=== PATIENT | female | born 1950 | race Caucasian/White ===

== ENCOUNTER 2020-08-10 17:27 | Emergency (ER) | payer OTHER ==
[~2020-08-10] VITALS: Ht 160 cm; Wt 72.6 kg
[2020-08-10 18:56] LABS: Basophils # (auto) 0 10 ^3/uL (0-0.2); Eosinophils # (auto) 0 10 ^3/uL (0-0.8); Lymphocytes # (auto) 0.8 10 ^3/uL (0.4-5.4); Lymphocytes % (auto) 14.7 % (10.0-50.0); Monocytes # (auto) 0.8 10 ^3/uL (0-1.3); Nucleated Red Blood Cells % 0.1 %
[2020-08-10 18:59] LABS: Basophils % (auto) 0.3 % (0.0-2.0); Hematocrit 33.9 % (36.0-46.0); Hemoglobin 10.5 g/dL (12.2-16.2); Mean Corpuscular Volume 77.4 fL (80.0-100.0); Monocytes % (auto) 14.8 % (0.0-12.0); Neutrophils # (auto) 3.9 10 ^3/uL (1.6-8.6); Neutrophils % (auto) 70.2 % (37.0-80.0); Platelet Count (auto) 366 10^3/uL (140-450); Red Blood Cells 4.38 10^6/uL (4.0-5.20); White Blood Cell 5.5 10^3/uL (4.4-10.8)
[2020-08-10 19:20] LABS: Alanine Aminotransferase 23 U/L (13-56); Albumin 1.4 g/dL (3.4-5.0); Anion Gap 5 (5-15); Blood Urea Nitrogen 20 mg/dL (7-18); Calcium 7.3 mg/dL (8.5-10.1); Carbon Dioxide 24 mmol/L (21-32); Chloride 108 mmol/L (98-107); Glucose 112 mg/dL (74-106); Potassium 3.9 mmol/L (3.5-5.1); Sodium 137 mmol/L (136-145)
[2020-08-10 19:32] LABS: Alkaline Phosphatase 963 U/L (45-117); Aspartate Aminotransferase 23 U/L (15-37); BUN/Creatinine Ratio 32.3; Bilirubin, Total 0.2 mg/dL (0.2-1.0); GFR African American 122 mL/min; GFR Non-African American 101 mL/min; Total Protein 4.7 g/dL (6.4-8.2)
[2020-08-10 21:48] VITALS: BP 10/62
== END 2020-08-10 21:58 | disposition home or self-care (01) ==
LOC: ER 17:27
DX: R60.0 Localized edema (principal); K80.20 Calculus of gallbladder without cholecystitis without obstruction; N28.1 Cyst of kidney, acquired; N20.0 Calculus of kidney; L72.8 Other follicular cysts of the skin and subcutaneous tissue; J45.909 Unspecified asthma, uncomplicated; I10 Essential (primary) hypertension; Z86.2 Personal history of diseases of the blood and blood-forming organs and certain disorders involving the immune mechanism; Z88.5 Allergy status to narcotic agent
CPT/HCPCS: 36415; 71046; 74176; 80053; 83880; 84484; 85025; 93005; 93970

== ENCOUNTER 2020-08-20 12:59 | Inpatient (IN) | payer OTHER ==
[~2020-08-20] VITALS: Ht 170.2 cm; Wt 68.0 kg
[2020-08-20] MEDS ORDERED: SODIUM CHLORIDE 0.9% 1,000 ML IV ONE (13:30)
[2020-08-20 15:13] LABS: Basophils # (auto) 0 10 ^3/uL (0-0.2); Basophils % (auto) 0.1 % (0.0-2.0); Eosinophils # (auto) 0 10 ^3/uL (0-0.8); Lymphocytes # (auto) 0.9 10 ^3/uL (0.4-5.4); Monocytes # (auto) 1.4 10 ^3/uL (0-1.3); Neutrophils # (auto) 11.6 10 ^3/uL (1.6-8.6)
[2020-08-20 15:14] LABS: Hematocrit 31.3 % (36.0-46.0); Hemoglobin 9.7 g/dL (12.2-16.2); Lymphocytes % (auto) 6.2 % (10.0-50.0); Mean Corpuscular Hemoglobin 24.2 pg (28.0-32.0); Mean Corpuscular Volume 78.1 fL (80.0-100.0); Monocytes % (auto) 10.1 % (0.0-12.0); Neutrophils % (auto) 83.6 % (37.0-80.0); Nucleated Red Blood Cells % 0.1 %; Platelet Count (auto) 279 10^3/uL (140-450); Red Cell Distribution Width 19.5 % (11.8-14.3); White Blood Cell 13.9 10^3/uL (4.4-10.8)
[2020-08-20 15:19] LABS: Albumin 1.2 g/dL (3.4-5.0); BUN/Creatinine Ratio 32.5; Calcium 7.3 mg/dL (8.5-10.1); Potassium 4.2 mmol/L (3.5-5.1)
[2020-08-20 15:24] LABS: Bilirubin, Total 0.4 mg/dL (0.2-1.0); Total Protein 4.2 g/dL (6.4-8.2)
[2020-08-20 15:32] LABS: INR 1.11 (0.9-1.15); Partial Thromboplastin Time 28.7 sec (23.0-31.2)
[2020-08-20] MEDS ORDERED: FUROSEMIDE 20 MG/2 ML VIAL IV ONE (17:45)
[2020-08-20] MEDS ORDERED: cefTRIAXone 1GM/50ML D5W 50 ML IV ONE (17:45)
[2020-08-20] MEDS ORDERED: SODIUM CHLORIDE 0.9% 500 ML IV ONE (17:45)
[2020-08-20] MEDS ORDERED: MORPHINE SULF INJ 2 MG/ML SYRINGE 1ML IV PRN ×2 (18:00)
[2020-08-20] MEDS ORDERED: DOCUSATE SOD 100 MG CAP PO PRN (18:00)
[2020-08-20] MEDS ORDERED: ONDANSETRON HCL 4 MG/2 ML VIAL IV PRN (18:00)
[2020-08-20] MEDS ORDERED: VANCOMYCIN PER PHARMACY 0 MG IV SCH (18:00)
[2020-08-20] MEDS ORDERED: ALBUMIN 25% 50 ML IV ONE (18:00)
[2020-08-20] MEDS ORDERED: HYDROcodone-ACET 5/325MG TAB PO PRN (18:00)
[2020-08-20] MEDS ORDERED: NITROGLYCERIN 0.4 MG SL TAB SL PRN (18:00)
[2020-08-20] MEDS ORDERED: ACETAMINOPHEN 325 MG TAB PO PRN (18:00)
[2020-08-20] MEDS ORDERED: ALUM & MAG HYDROX-SIMETH LIQ(MAALOX) 30 ML PO PRN (18:00)
[2020-08-20] MEDS ORDERED: methylPREDNISolone SOD SUCC 125 MG/2 ML VL IV ONE (18:00)
[2020-08-20] MEDS ORDERED: PIPERACILLIN-TAZOB 3.375GM 100 ML IV ONE (18:00)
[2020-08-20 18:53] LABS: Urine Bacteria FEW /hpf (None Seen); Urine Blood 2+ /uL (Negative); Urine Mucus FEW (None Seen); Urine Specific Gravity 1.015 (1.001-1.035); Urine WBC 258 /hpf (0 - 5); Urine WBC Clumps PRESENT /hpf (None Seen)
[2020-08-20 19:28] LABS: Alcohol, Urine 4.5 mg/dL (0-10); Amphetamine Screen, Urine NEGATIVE (NEGATIVE); Barbiturate Scree,Urine NEGATIVE (NEGATIVE); Benzodiazephine Screen, Urine NEGATIVE (NEGATIVE); Cannabinoid Screen, Urine NEGATIVE (NEGATIVE); Cocaine Screen, Urine NEGATIVE (NEGATIVE); Opiate Scree,Urine NEGATIVE (NEGATIVE); Phencyclidine Screen, Urine NEGATIVE (NEGATIVE)
[2020-08-20 21:08] LABS: Cholesterol 88 mg/dL (< 200)
[2020-08-20 21:12] LABS: HDL Cholesterol 28 mg/dL (40-59); LDL Cholesterol 38 mg/dL (< 100); Triglycerides 68 mg/dL (< 150)
[2020-08-20] MEDS ORDERED: BUDESONIDE (INHALATION) 0.5 MG/2 ML NEB NEB SCH (22:00)
[2020-08-20] MEDS ORDERED: ALBUTEROL SULF HFA 90MCG INH 200DOSE IN SCH (22:00)
[2020-08-20] MEDS: methylPREDNISolone SOD SUCC 40 MG/ML VL IV SCH (22:00)
[2020-08-20] MEDS: FAMOTIDINE (10MG/ML) 2ML VL IV SCH (22:00)
[2020-08-20 23:22] VITALS: BP 84/42
[2020-08-21] MEDS: VANCOMYCIN 1GM/250ML 250 ML IV SCH ×3 (00:12→21:53)
[2020-08-21] MEDS: ALBUMIN 25% 50 ML IV SCH ×3 (03:18→18:01)
[2020-08-21] MEDS ORDERED: ALBUTEROL SULF 2.5 MG/0.5ML(0.5%) NEB SOLN NEB PRN (04:00)
[2020-08-21] MEDS: SODIUM CHLORIDE 0.9% 1,000 ML IV SCH ×2 (04:00→14:00)
[2020-08-21] MEDS: PIPERACILLIN-TAZOB 3.375GM 100 ML IV SCH ×4 (05:32→18:21)
--- NOTE | 2020-08-21 05:48 | NUR ---
Respiratory note: PT RECIEVED ON RA. NO RESP DISTRESS NOTED. PRN TX NOT INDICATED. SPO2 94%, HR 58, RR 17.
[2020-08-21] MEDS: methylPREDNISolone SOD SUCC 40 MG/ML VL IV SCH (06:11)
[2020-08-21] MEDS: FAMOTIDINE (10MG/ML) 2ML VL IV SCH ×2 (10:09→21:53)
[2020-08-21 11:24] LABS: Albumin 1.2 g/dL (3.4-5.0); Calcium 7.4 mg/dL (8.5-10.1); Potassium 4.5 mmol/L (3.5-5.1)
[2020-08-21 11:27] LABS: Phosphorus 3.8 mg/dL (2.5-4.90)
[2020-08-21 12:13] LABS: Basophils # (auto) 0 10 ^3/uL (0-0.2); Hemoglobin 9.5 g/dL (12.2-16.2); Lymphocytes # (auto) 0.5 10 ^3/uL (0.4-5.4); Monocytes # (auto) 0.3 10 ^3/uL (0-1.3); Neutrophils # (auto) 11.1 10 ^3/uL (1.6-8.6); Neutrophils % (auto) 92.7 % (37.0-80.0)
[2020-08-21 12:15] LABS: Basophils % (auto) 0.1 % (0.0-2.0); Eosinophils # (auto) 0.1 10 ^3/uL (0-0.8); Eosinophils % (auto) 0.6 % (0.0-7.0); Hematocrit 30.6 % (36.0-46.0); Lymphocytes % (auto) 3.9 % (10.0-50.0); Mean Corpuscular Hemoglobin 24.2 pg (28.0-32.0); Mean Corpuscular Hgb Conc. 31.1 g/dL (32.0-36.0); Mean Corpuscular Volume 77.7 fL (80.0-100.0); Monocytes % (auto) 2.7 % (0.0-12.0); Nucleated Red Blood Cells % 0.1 %; Platelet Count (auto) 258 10^3/uL (140-450); Red Blood Cells 3.94 10^6/uL (4.0-5.20); Red Cell Distribution Width 20.1 % (11.8-14.3)
[2020-08-22] MEDS: PIPERACILLIN-TAZOB 3.375GM 100 ML IV SCH ×4 (03:15→17:14)
[2020-08-22] MEDS: SODIUM CHLORIDE 0.9% 1,000 ML IV SCH ×3 (06:44→22:13)
[2020-08-22 08:10] LABS: Basophils # (auto) 0 10 ^3/uL (0-0.2); Basophils % (auto) 0.1 % (0.0-2.0); Eosinophils # (auto) 0 10 ^3/uL (0-0.8); Lymphocytes # (auto) 0.6 10 ^3/uL (0.4-5.4); Monocytes # (auto) 0.9 10 ^3/uL (0-1.3)
[2020-08-22 08:13] LABS: Hematocrit 31.6 % (36.0-46.0); Hemoglobin 9.6 g/dL (12.2-16.2); Mean Corpuscular Hemoglobin 23.7 pg (28.0-32.0); Mean Corpuscular Hgb Conc. 30.5 g/dL (32.0-36.0); Mean Corpuscular Volume 77.9 fL (80.0-100.0); Neutrophils # (auto) 7.3 10 ^3/uL (1.6-8.6); Neutrophils % (auto) 82.9 % (37.0-80.0); Platelet Count (auto) 292 10^3/uL (140-450); Red Blood Cells 4.06 10^6/uL (4.0-5.20); White Blood Cell 8.8 10^3/uL (4.4-10.8)
[2020-08-22 08:28] LABS: Red Cell Distribution Width 20.2 % (11.8-14.3)
[2020-08-22 08:34] LABS: Albumin 1.4 g/dL (3.4-5.0); Calcium 7.8 mg/dL (8.5-10.1)
[2020-08-22 08:38] LABS: BUN/Creatinine Ratio 33.3; Bilirubin, Total 0.4 mg/dL (0.2-1.0); Total Protein 4.2 g/dL (6.4-8.2)
[2020-08-22] MEDS: FAMOTIDINE (10MG/ML) 2ML VL IV SCH ×3 (10:00→23:03)
[2020-08-22] MEDS: ENOXAPARIN SOD 40 MG/0.4 ML SYRINGE SC SCH (10:00)
[2020-08-22] MEDS: LORazepam 0.5 MG TAB PO PRN (23:03)
[2020-08-23] MEDS: LORazepam 0.5 MG TAB PO PRN ×2 (05:30→15:25)
[2020-08-23] MEDS: SODIUM CHLORIDE 0.9% 1,000 ML IV SCH ×2 (06:14→16:22)
[2020-08-23] MEDS: PIPERACILLIN-TAZOB 3.375GM 100 ML IV SCH ×2 (06:14)
[2020-08-23 07:16] LABS: Basophils # (auto) 0 10 ^3/uL (0-0.2); Eosinophils # (auto) 0 10 ^3/uL (0-0.8); Lymphocytes # (auto) 0.6 10 ^3/uL (0.4-5.4)
[2020-08-23 07:18] LABS: Basophils % (auto) 0.4 % (0.0-2.0); Hematocrit 30.1 % (36.0-46.0); Hemoglobin 9.4 g/dL (12.2-16.2); Lymphocytes % (auto) 10.6 % (10.0-50.0); Mean Corpuscular Hemoglobin 24.1 pg (28.0-32.0); Mean Corpuscular Hgb Conc. 31.3 g/dL (32.0-36.0); Monocytes # (auto) 0.5 10 ^3/uL (0-1.3); Monocytes % (auto) 9.6 % (0.0-12.0); Neutrophils # (auto) 4.5 10 ^3/uL (1.6-8.6); Neutrophils % (auto) 79.4 % (37.0-80.0); Platelet Count (auto) 257 10^3/uL (140-450); Red Blood Cells 3.91 10^6/uL (4.0-5.20); Red Cell Distribution Width 19.8 % (11.8-14.3); White Blood Cell 5.7 10^3/uL (4.4-10.8)
[2020-08-23 07:28] LABS: Albumin 1.4 g/dL (3.4-5.0); Calcium 7.1 mg/dL (8.5-10.1); Potassium 3.3 mmol/L (3.5-5.1)
[2020-08-23 07:32] LABS: Bilirubin, Total 0.4 mg/dL (0.2-1.0); Total Protein 4.2 g/dL (6.4-8.2)
[2020-08-23] MEDS: ENOXAPARIN SOD 40 MG/0.4 ML SYRINGE SC SCH (10:00)
[2020-08-23] MEDS: FAMOTIDINE (10MG/ML) 2ML VL IV SCH (10:00)
[2020-08-23] MEDS: CEPHALEXIN 250 MG CAP PO SCH ×3 (11:15→18:00)
[2020-08-23] MEDS ORDERED: POTASSIUM EFFERVESENT TAB 25 MEQ PO ONE (11:15)
[2020-08-23] MEDS ORDERED: CEPH250C PO (11:39)
--- NOTE | 2020-08-23 15:37 | NUR ---
Faxed clinical packet to [facility] for authorization for SNF placement and for transportation.
--- NOTE | 2020-08-23 16:09 | NUR ---
Called Dr. Jackson's office and spoke with Fernanda stated the patient's next Chemo appointment was 09/13/20 at 1310.
--- NOTE | 2020-08-23 16:16 | NUR ---
Called [facility] and spoke with Benjamin Awad stated he is reviewing the packet and will call back.
--- NOTE | 2020-08-23 17:21 | NUR ---
2255 08/23/20 - Faxed to [facility] at [phone] face sheet, lab results (COVID test).
[2020-08-23 17:38] VITALS: BP 148/89
--- NOTE | 2020-08-23 17:44 | NUR ---
Pt is an alert and oriented female with some forgetfulness. Pt was residing with family and on Chemo treatments prior to admission. Pts sister, Amelia is the POA. Pt is now weakened and sustained falls at home. SS consult for SNF placement upon discharge. [facility] case management manager, Benjamin, was contacted and referred order to [facility] ( contracted vendor with [employer]). Faxed cliical information to [facility] at [facility] and pt accepted for admission. Report to be called to [id number] and auth from [employer] is [id number]. Setup transport by [facility] ( [id number]) for [employer] material handlers of 1830/1900. Auth number is [id number]. Addendum: 08/23/20 at 1753 by DOTTIE FERNANDEZ Amended: Links added.
== END 2020-08-23 19:12 | DRG 871 ==
LOC: EDBD 12:59 → ER 12:59 → EDUNIT# 12:59 → TELE 13:00
PROVIDERS: ADMIT Hospitalist; ATTEND Internal Medicine
DX: A41.9 Sepsis, unspecified organism (principal); G93.41 Metabolic encephalopathy; E43 Unspecified severe protein-calorie malnutrition; R65.21 Severe sepsis with septic shock; J18.9 Pneumonia, unspecified organism; N17.0 Acute kidney failure with tubular necrosis; E87.1 Hypo-osmolality and hyponatremia; C77.9 Secondary and unspecified malignant neoplasm of lymph node, unspecified; D84.821 Immunodeficiency due to drugs; Z20.828 Contact with and (suspected) exposure to other viral communicable diseases; T45.1X5A Adverse effect of antineoplastic and immunosuppressive drugs, initial encounter; I10 Essential (primary) hypertension; J45.909 Unspecified asthma, uncomplicated; E86.0 Dehydration; D63.8 Anemia in other chronic diseases classified elsewhere; Z88.5 Allergy status to narcotic agent; Z79.899 Other long term (current) drug therapy; Y92.098 Other place in other non-institutional residence as the place of occurrence of the external cause; Z85.820 Personal history of malignant melanoma of skin; Z87.828 Personal history of other (healed) physical injury and trauma
CPT/HCPCS: 36415; 51702; 70450; 71045; 76705; 80053; 80061; 80069; 80202; 80307; 81001; 83036; 83605; 83880; 84484; 85025; 85610; 85730; 87040; 87077; 87086; 87088; 87186; 93005; 93306; 96361; 96365; 96375; G0378; J0696; J2543; J3490